=== PATIENT | female | born 1945 | race Caucasian/White ===

== ENCOUNTER → 2020-10-07 | Outpatient (CLI) | payer MEDICARE, OTHER ==
[~2020-10-07] MED LIST: AMIO200; ASCO500 PO; ASPI325; ASPI81CH; ASPI81CH PO; B Complex1 EAC2 PO; CALCAVITD; CALCAVITD PO; CALGLU500; CHOL10002; CHOL10002 PO; DAILY MULTIPLE1 EACH; DIGO.125 PO; DIGO.25 PO; ELIQUIS5 MG PO; ESOM20; EZET10; FISH OIL 1,2001 EACH PO; FISH1000 PO; HYDR1TAB94; HYDR1TAB94 PO; IRON240 MG PO; LEVSOD50 PO; LUTEIN10 MG PO; LUTEIN20 MG PO; METO50ER PO; MULVITA; MULVITMIND PO; ONDA4 PO; OXYACE5T PO; Pacerone100 MG PO; ROSU5; ROSU5 PO; RXOXYACE PO; Super B Comple150 MG; Toprol Xl25 MG PO; WARF5 PO
== END ==
LOC: LAB 13:33 → LAB SHORT 13:33
DX: D48.5 Neoplasm of uncertain behavior of skin (principal)
CPT/HCPCS: 88305

== ENCOUNTER → 2020-12-03 | Outpatient (CLI) | payer MEDICARE, OTHER | END | disposition home or self-care (01) | LOC: LAB SHORT 14:22 | DX: D18.01 Hemangioma of skin and subcutaneous tissue (principal) | CPT/HCPCS: 88305 ==

== ENCOUNTER 2021-04-09 13:10 | Day surgery (SDC) | payer MEDICARE, OTHER ==
[~2021-04-09] VITALS: Ht 165.1 cm; Wt 87.6 kg
[2021-04-09] MEDS ORDERED: CALCIUM 500 MG1 EAC2 PO (13:57)
[2021-04-09] MEDS ORDERED: VITAMIN D310 MC4 (13:58)
[2021-04-09] MEDS ORDERED: COQ10 (13:59)
[2021-04-09] MEDS ORDERED: GABA100 (14:00)
[2021-04-09] MEDS ORDERED: STOOL SOFTNER (14:01)
[2021-04-09] MEDS ORDERED: MAGNESIUM (14:01)
[2021-04-09] MEDS ORDERED: PYRIDOXINE (14:02)
[2021-04-09] MEDS ORDERED: PRAV20 PO (14:03)
[2021-04-09] MEDS ORDERED: FOCUS FACTOR (14:03)
--- NOTE | 2021-04-09 14:21 | NUR ---
Ambulatory in Day Surgery History, Chart, Medications and Allergies reviewed before start of procedure. Lungs clear T/O to Auscultation. Patient confirms NPO status and agrees with scheduled surgery. Pre-Op teaching done. Pt verbalizes understanding. Patient States Post-Procedure ride home has been arranged.
--- NOTE | 2021-04-09 14:51 | NUR ---
PT IV INFILTRATED DURING PROCEDURE BEFORE SCOPE WAS STARTED, NEW IV PLACED WITH ASSIST FROM OTHER IV. OTHER IV REMOVED WNL.
--- NOTE | 2021-04-09 14:57 | NUR ---
04/09/21 1457 Wilfredo Plasencia History, Chart, Medications and Allergies reviewed before start of procedure. Patient confirms NPO status and agrees with scheduled surgery. 3-LEAD EKG REVIEWED WITH PHYSICIAN PRIOR TO START OF PROCEDURE. MONITOR INTACT WITH CONTINUOUS PULSE OXIMETRY AND INTERMITTENT BP. PATIENT DETERMINED TO BE ASA APPROPRIATE FOR PROPOFOL SEDATION PRIOR TO START OF PROCEDURE BY DR. KRAFT.
--- NOTE | 2021-04-09 16:14 | NUR ---
Patient up to Ambulate independently. Gait steady. Discharge instructions reviewed with patient. Patient verbalizes understanding. Copy given to patient to take home WELL FAMILY. Patient States Post-Procedure ride home has been arranged. Discharged via wheelchair to private car for ride home. PT TOLERATING PO, WATER AND CRACKERS. PT REPORTS READY TO GO HOME THAT HER BP WAS THIS HIGH WHEN SHE CAME INTO HOSPITAL, THAT IT IS ALWAYS ELEVATED HERE AND HER TEST ENGINE EVALUATOR.
== END 2021-04-09 16:14 | disposition home or self-care (01) ==
LOC: ORSCMMR 13:10 → ORD 14:15 → ORSCMMR 14:15
PROVIDERS: Surgery
PROC: 0DBK8ZX Excision of Ascending Colon, Via Natural or Artificial Opening Endoscopic, Diagnostic (ICD-10-PCS; principal; 2021-04-09 14:15)
DX: Z12.11 Encounter for screening for malignant neoplasm of colon (principal); Z86.010 Personal history of colon polyps; D12.2 Benign neoplasm of ascending colon; Z80.0 Family history of malignant neoplasm of digestive organs; I48.91 Unspecified atrial fibrillation; E78.5 Hyperlipidemia, unspecified; E03.9 Hypothyroidism, unspecified; Z79.899 Other long term (current) drug therapy
CPT/HCPCS: 88305; J2704; J7120

== ENCOUNTER 2021-09-21 07:35 | Day surgery (SDC) | payer MEDICARE, OTHER ==
[~2021-09-21] VITALS: Ht 157.5 cm; Wt 89.0 kg
[~2021-09-21 07:35] MED LIST changes: +CALCIUM 500 MG1 EAC2 PO; +COQ10; +FOCUS FACTOR; +GABA100; +MAGNESIUM; +PRAV20 PO; +PYRIDOXINE; +STOOL SOFTNER; +VITAMIN D310 MC4
[2021-09-21] MEDS ORDERED: VITAMIN D32000 UNIT PO (08:23)
--- NOTE | 2021-09-21 10:08 | NUR ---
09/21/21 Andre8 Carol Pond 0.15MG EPINEPHRINE (1MG/1ML) ADDED TO 30ML BUPIVACAINE 0.5% TO CREATE LOCAL INJECTION OF 0.5% BUPIVACAINE WITH 1:200,000 EPI.
--- NOTE | 2021-09-21 11:16 | NUR ---
09/21/21 1116 MEAGAN ESCOBAR PAIN STARTING IN KNEE. MORE SO WHEN MOVING LEG. NORCO 5/325MG GIVEN.
== END 2021-09-21 11:50 | disposition home or self-care (01) ==
LOC: ORSCSDS 07:35
PROVIDERS: Orthopaedic Surgery
PROC: 0SBC4ZZ Excision of Right Knee Joint, Percutaneous Endoscopic Approach (ICD-10-PCS; principal; 2021-09-21 09:00)
DX: S83.241A Other tear of medial meniscus, current injury, right knee, initial encounter (principal); S83.281A Other tear of lateral meniscus, current injury, right knee, initial encounter; M17.0 Bilateral primary osteoarthritis of knee; I10 Essential (primary) hypertension; I48.91 Unspecified atrial fibrillation; E03.9 Hypothyroidism, unspecified; K21.9 Gastro-esophageal reflux disease without esophagitis; Z79.899 Other long term (current) drug therapy
CPT/HCPCS: A9270; J0171; J0690; J1100; J1885; J2405; J2704; J3010; J7120

== ENCOUNTER → 2022-01-29 | Outpatient (CLI) | payer MEDICARE, OTHER ==
[~2022-01-29] MED LIST changes: +VITAMIN D32000 UNIT PO
[2022-01-29 13:35] LABS: Stool Occult Blood Guaiac 1 Neg (Neg)
[2022-01-29 13:36] LABS: Stool Occult Blood Guaiac 2 Neg (Neg)
[2022-01-29 13:37] LABS: Stool Occult Blood Guaiac 3 Neg (Neg)
== END | disposition home or self-care (01) ==
LOC: LAB SHORT 12:23 → LAB 12:23 → LAB FUT 12-17 16:10
PROVIDERS: Internal Medicine
DX: D50.9 Iron deficiency anemia, unspecified (principal)
CPT/HCPCS: 82272

== ENCOUNTER → 2022-10-06 | Outpatient (CLI) | payer MEDICARE, OTHER | LOC: LAB SHORT 08:54 → PLD 08:54 | DX: D48.5 Neoplasm of uncertain behavior of skin (principal) | CPT/HCPCS: 88305 ==

== ENCOUNTER 2023-01-25 07:50 | Emergency (ER) | payer MEDICARE, OTHER ==
[~2023-01-25] VITALS: Ht 167.6 cm; Wt 84.4 kg
[2023-01-25 08:35] LABS: BASOPHILS ABSOLUTE AUTO 0.01 K/mm3 (0.00-0.23); BASOPHILS PERCENT AUTO 0 % (0-2); EOSINOPHILS ABSOLUTE AUTO 0.23 K/mm3 (0.00-0.68); EOSINOPHILS PERCENT AUTO 2 % (0-6); Hematocrit 40.9 % (33.0-51.0); Hemoglobin 13.9 g/dL (11.5-16.0); IMMATURE GRAN ABSOLUTE AUTO 0.04 K/mm3 (0.00-0.10); IMMATURE GRAN PERCENT AUTO 0 % (0-1); LYMPHOCYTES ABSOLUTE AUTO 0.98 K/mm3 (0.84-5.20); LYMPHOCYTES PERCENT AUTO 10 % (21-46); MONOCYTES ABSOLUTE AUTO 0.92 K/mm3 (0.16-1.47); MONOCYTES PERCENT AUTO 10 % (4-13); Mean Corpuscular HGB 29.2 pg (26.0-34.0); Mean Corpuscular Volume 86 fL (80-100); Mean Platelet Volume 10.8 fL (9.1-12.4); NEUTROPHILS PERCENT AUTO 78 % (41-73); Platelet Count 196 K/mm3 (150-400); RDW Coefficient Variation 13.3 % (11.7-14.2); RDW Standard Deviation 41.6 fL (35.1-46.3); Red Blood Cell Count 4.76 M/mm3 (3.80-5.20); White Blood Cell Count 9.68 K/mm3 (4.00-11.30)
[2023-01-25 08:54] LABS: Albumin, Blood 3.4 g/dL (3.4-5.0); Bilirubin, Total 0.4 mg/dL (0.1-1.0); Bun/Creatinine Ratio 22.3 (12.0-20.0); Creatinine, Blood 0.76 mg/dL (0.40-1.00); Globulin, Blood 3.3 g/dL (2.2-4.0); Potassium, Blood 4.1 mmol/L (3.5-5.5); Total Protein, Blood 6.7 g/dL (6.4-8.2)
[2023-01-25 09:33] LABS: Source, Urine Clean Catch
[2023-01-25 09:45] LABS: Appearance, Urine Clear (Clear); Bilirubin, Urine Neg (Neg); Blood, Urine Neg (Neg); Color, Urine Yellow (P-Yellow); Glucose Qualitative, Urine Neg (Neg); Ketones, Urine Neg (Neg); Leukocyte Esterase, Urine Neg (Neg); Nitrite, Urine Neg (Neg); Protein, Urine Neg (Neg); Specific Gravity, Urine 1.015 (1.003-1.022); Urobilinogen, Urine NORM (Normal)
[2023-01-25] MEDS ORDERED: Voltaren100 GM TOP (10:16)
[2023-01-25] MEDS ORDERED: LIDO700A20 TOP (10:16)
[2023-01-25] MEDS ORDERED: HYDR1TAB94 PO (10:16)
[2023-01-25 10:40] VITALS: BP 161/73
== END 2023-01-25 10:45 | disposition home or self-care (01) ==
LOC: ER 07:50
PROVIDERS: Emergency Medicine
DX: R07.89 Other chest pain (principal); I48.91 Unspecified atrial fibrillation; E78.5 Hyperlipidemia, unspecified; K21.9 Gastro-esophageal reflux disease without esophagitis; Z88.8 Allergy status to other drugs, medicaments and biological substances; Z79.899 Other long term (current) drug therapy
CPT/HCPCS: 71046; 80053; 81003; 83690; 85025; 96374; 99284-25; A9270; J1885

== ENCOUNTER 2023-06-16 00:49 | Emergency (ER) | payer MEDICARE, OTHER ==
[~2023-06-16] VITALS: Ht 167.6 cm; Wt 84.4 kg
[~2023-06-16 00:49] MED LIST changes: +LIDO700A20 TOP; +Voltaren100 GM TOP
[2023-06-16 02:12] LABS: BASOPHILS ABSOLUTE AUTO 0.02 K/mm3 (0.00-0.23); BASOPHILS PERCENT AUTO 0 % (0-2); EOSINOPHILS ABSOLUTE AUTO 0.21 K/mm3 (0.00-0.68); EOSINOPHILS PERCENT AUTO 2 % (0-6); Hematocrit 40.1 % (33.0-51.0); Hemoglobin 13.3 g/dL (11.5-16.0); IMMATURE GRAN ABSOLUTE AUTO 0.06 K/mm3 (0.00-0.10); IMMATURE GRAN PERCENT AUTO 1 % (0-1); LYMPHOCYTES ABSOLUTE AUTO 2.28 K/mm3 (0.84-5.20); LYMPHOCYTES PERCENT AUTO 24 % (21-46); MONOCYTES ABSOLUTE AUTO 0.78 K/mm3 (0.16-1.47); MONOCYTES PERCENT AUTO 8 % (4-13); Mean Corpuscular HGB 28.5 pg (26.0-34.0); Mean Corpuscular HGB Conc 33.2 g/dL (31.5-36.5); Mean Corpuscular Volume 86 fL (80-100); Mean Platelet Volume 10.9 fL (9.1-12.4); NEUTROPHILS ABSOLUTE AUTO 6.07 K/mm3 (1.96-9.15); NEUTROPHILS PERCENT AUTO 65 % (41-73); Platelet Count 262 K/mm3 (150-400); RDW Coefficient Variation 12.8 % (11.7-14.2); RDW Standard Deviation 39.5 fL (35.1-46.3); Red Blood Cell Count 4.67 M/mm3 (3.80-5.20); White Blood Cell Count 9.42 K/mm3 (4.00-11.30)
[2023-06-16 02:46] LABS: Albumin, Blood 3.5 g/dL (3.4-5.0); Bilirubin, Total 0.3 mg/dL (0.1-1.0); Bun/Creatinine Ratio 31.3 (12.0-20.0); Calcium, Blood 9.1 mg/dL (8.5-10.1); Creatinine, Blood 0.74 mg/dL (0.40-1.00); Globulin, Blood 3.5 g/dL (2.2-4.0); Potassium, Blood 3.8 mmol/L (3.5-5.5)
[2023-06-16] MEDS ORDERED: ASPIRIN REGIMEN81 MG PO (05:16)
[2023-06-16] MEDS ORDERED: LISI5 PO (06:12)
[2023-06-16 06:30] VITALS: BP 150/68
== END 2023-06-16 06:47 | disposition home or self-care (01) ==
LOC: ER 00:49
PROVIDERS: Emergency Medicine
DX: I10 Essential (primary) hypertension (principal); I48.91 Unspecified atrial fibrillation; E78.00 Pure hypercholesterolemia, unspecified; Z79.899 Other long term (current) drug therapy
CPT/HCPCS: 80053; 84484; 85025; 93005; 93010; 99284-25; A9270

== ENCOUNTER → 2023-09-25 | Outpatient (CLI) | payer MEDICARE, OTHER ==
[~2023-09-25] MED LIST changes: +ASPIRIN REGIMEN81 MG PO; +LISI5 PO
== END | disposition home or self-care (01) ==
LOC: LAB SHORT 08:28 → LAB 08:28 → LAB SHORT 09-26 08:28
PROVIDERS: Internal Medicine Endocrinology, Diabetes & Metabolism
DX: E26.9 Hyperaldosteronism, unspecified (principal)
CPT/HCPCS: 81050; 82570; 84300

== ENCOUNTER 2024-05-12 19:01 | Observation (INO) | payer MEDICARE, OTHER ==
[~2024-05-12] VITALS: Ht 165.1 cm; Wt 86.9 kg
[~2024-05-12 19:01] MED LIST changes: -COQ10; +COQ10 PO
[2024-05-12] MEDS ORDERED: MULVITA PO (19:17)
[2024-05-12] MEDS ORDERED: ELIQUIS5 M3 PO (19:18)
[2024-05-12] MEDS ORDERED: EZETIMIBE10 M6 PO (19:19)
[2024-05-12] MEDS ORDERED: LOSARTAN POTASS25 M2 PO (19:19)
[2024-05-12] MEDS ORDERED: PRAV20 PO (19:19)
[2024-05-12 19:30] LABS: BASOPHILS ABSOLUTE AUTO 0.01 K/mm3 (0.00-0.23); BASOPHILS PERCENT AUTO 0 % (0-2); EOSINOPHILS ABSOLUTE AUTO 0.16 K/mm3 (0.00-0.68); EOSINOPHILS PERCENT AUTO 2 % (0-6); Hematocrit 39.3 % (33.0-51.0); Hemoglobin 13.3 g/dL (11.5-16.0); IMMATURE GRAN ABSOLUTE AUTO 0.02 K/mm3 (0.00-0.10); IMMATURE GRAN PERCENT AUTO 0 % (0-1); LYMPHOCYTES ABSOLUTE AUTO 2.39 K/mm3 (0.84-5.20); LYMPHOCYTES PERCENT AUTO 29 % (21-46); MONOCYTES ABSOLUTE AUTO 0.71 K/mm3 (0.16-1.47); MONOCYTES PERCENT AUTO 9 % (4-13); Mean Corpuscular HGB 29.2 pg (26.0-34.0); Mean Corpuscular HGB Conc 33.8 g/dL (31.5-36.5); Mean Corpuscular Volume 86 fL (80-100); Mean Platelet Volume 10.4 fL (9.1-12.4); NEUTROPHILS PERCENT AUTO 60 % (41-73); Platelet Count 236 K/mm3 (150-400); RDW Coefficient Variation 13.1 % (11.7-14.2); RDW Standard Deviation 40.8 fL (35.1-46.3); Red Blood Cell Count 4.55 M/mm3 (3.80-5.20); White Blood Cell Count 8.29 K/mm3 (4.00-11.30)
[2024-05-12 19:47] LABS: Albumin, Blood 3.5 g/dL (3.4-5.0); Albumin/Globulin Ratio 1.1 (0.8-1.8); Bilirubin, Total 0.2 mg/dL (0.1-1.0); Calcium, Blood 9.7 mg/dL (8.5-10.1); Creatinine, Blood 0.78 mg/dL (0.40-1.00); Globulin, Blood 3.2 g/dL (2.2-4.0); Potassium, Blood 3.9 mmol/L (3.5-5.5); Total Protein, Blood 6.7 g/dL (6.4-8.2)
[2024-05-12] MEDS ORDERED: HydrALAZINE HCl 20 MG / ML 1ML Vial IV ONE (21:15)
[2024-05-12] MEDS ORDERED: Lidocaine/Tetracaine/Epinephr 3 ML GEL SYRINGE TOP ONE (21:25)
[2024-05-12] MEDS ORDERED: HydrALAZINE HCl 20 MG / ML 1ML Vial IV PRN (22:15)
[2024-05-13] VITALS (13 sets, daily range): BP systolic 131–200; BP diastolic 55–85
[2024-05-13] MEDS ORDERED: Ondansetron HCl 2 MG / ML 2ML Vial IV PRN (00:40)
[2024-05-13] MEDS ORDERED: FLU VACC TS2024-25(6MOS UP)/PF 45 MCG/0.5 ML SYRINGE IM ONE (00:40)
[2024-05-13] MEDS ORDERED: Losartan Potassium 50 MG Tab PO SCH (01:00)
--- NOTE | 2024-05-13 01:17 | NUR ---
PATIENT IS A NEW ADMIT FROM THE ED. AXOX 4 AND INDEPENDENT IN ROOM. DENIES CHEST PAIN, SOB, AND N/V. ON ROOM AIR. ORIENTED TO ROOM AND CALL LIGHT SYSTEM. PO COZAAR 50MG GIVEN X ONE. SBP 143/61 ON ADMIT. PATIENT RESTING AFTER ASSESSMENT. WCTM.
--- NOTE | 2024-05-13 04:44 | NUR ---
SHIFT SUMMARY PATIENT HAD NO ACUTE CHANGES. AXOX 4 AND INDEPENDENT IN ROOM. PIV INTACT. TELE MONITOR NSR 60'S. DENIES CHEST PAIN, SOB, AND N/V. VSS/AFEBRILE. WAITING ON UA SAMPLE. ORDER PLACED AFTER PATIENT HAD ALREADY VOIDED. TROPONINS DECREASED FROM 147 TO 138. REPORTS LIVES WITH HER IN [place]. CALL LIGHT IN REACH. BED IN LOWEST POSITION. WILL CONTINUE TO MONITOR UNTIL DAY SHIFT NURSE ASSUMES CARE.
--- NOTE | 2024-05-13 04:51 | NUR ---
MACHINE SOLE LEVELER REPORTS FIVE BEAT RUN OF V-TACH AND BACK TO NSR 60'S. PATIENT WAS UP TO BEDSIDE COMMODE. [facility].
[2024-05-13 05:50] LABS: BASOPHILS ABSOLUTE AUTO 0.01 K/mm3 (0.00-0.23); BASOPHILS PERCENT AUTO 0 % (0-2); EOSINOPHILS ABSOLUTE AUTO 0.19 K/mm3 (0.00-0.68); EOSINOPHILS PERCENT AUTO 3 % (0-6); Hematocrit 38.4 % (33.0-51.0); Hemoglobin 13.2 g/dL (11.5-16.0); IMMATURE GRAN ABSOLUTE AUTO 0.01 K/mm3 (0.00-0.10); IMMATURE GRAN PERCENT AUTO 0 % (0-1); LYMPHOCYTES ABSOLUTE AUTO 1.57 K/mm3 (0.84-5.20); LYMPHOCYTES PERCENT AUTO 21 % (21-46); MONOCYTES PERCENT AUTO 10 % (4-13); Mean Corpuscular HGB 29.1 pg (26.0-34.0); Mean Corpuscular HGB Conc 34.4 g/dL (31.5-36.5); Mean Corpuscular Volume 85 fL (80-100); Mean Platelet Volume 10.8 fL (9.1-12.4); NEUTROPHILS ABSOLUTE AUTO 4.84 K/mm3 (1.96-9.15); NEUTROPHILS PERCENT AUTO 66 % (41-73); Platelet Count 228 K/mm3 (150-400); RDW Coefficient Variation 13.2 % (11.7-14.2); RDW Standard Deviation 40.6 fL (35.1-46.3); Red Blood Cell Count 4.53 M/mm3 (3.80-5.20); White Blood Cell Count 7.32 K/mm3 (4.00-11.30)
[2024-05-13 06:24] LABS: Albumin, Blood 3.1 g/dL (3.4-5.0); Bilirubin, Total 0.6 mg/dL (0.1-1.0); Bun/Creatinine Ratio 25.4 (12.0-20.0); Calcium, Blood 9.4 mg/dL (8.5-10.1); Creatinine, Blood 0.63 mg/dL (0.40-1.00); Globulin, Blood 3.2 g/dL (2.2-4.0); Potassium, Blood 3.9 mmol/L (3.5-5.5); Total Protein, Blood 6.3 g/dL (6.4-8.2)
[2024-05-13 06:30] LABS: Source, Urine Clean Catch
--- NOTE | 2024-05-13 06:30 | NUR ---
URINE SAMPLE COLLECED AND SENT TO LAB.
[2024-05-13 06:43] LABS: Appearance, Urine Clear (Clear); Bilirubin, Urine Neg (Neg); Blood, Urine Neg (Neg); Color, Urine Yellow (P-Yellow); Glucose Qualitative, Urine Neg (Neg); Ketones, Urine Neg (Neg); Leukocyte Esterase, Urine Neg (Neg); Nitrite, Urine Neg (Neg); Protein, Urine Neg (Neg); Specific Gravity, Urine 1.015 (1.003-1.022); Urobilinogen, Urine NORM (Normal)
[2024-05-13] MEDS ORDERED: Apixaban 5 MG Tab PO SCH (09:00)
[2024-05-13] MEDS ORDERED: Gabapentin 100 MG Cap PO SCH (09:00)
[2024-05-13] MEDS ORDERED: Ezetimibe 10 MG Tab PO SCH (09:00)
[2024-05-13] MEDS ORDERED: Enoxaparin 40 MG/0.4 ML SYR SC SCH (09:00)
[2024-05-13] MEDS ORDERED: Empagliflozin 10 MG TAB PO SCH (09:00)
[2024-05-13] MEDS ORDERED: Metoprolol Succinate 25 MG TABCR PO SCH (09:00)
[2024-05-13] MEDS ORDERED: Losartan Potassium 50 MG Tab PO ONE (12:45)
--- NOTE | 2024-05-13 18:46 | NUR ---
PATIENT IS ALERT AND ORIENTED AND COOPERATIVE WITH CARE. ON RA. INDEPENDENT IN THE ROOM. FAMILY AT THE BEDSIDE TODAY. ECHO COMPLETE, PENDING RESULTS. PATIENT WAS HYPERTENSIVE THIS MORNING, GIVEN MORNING MEDS EARLY. THEN HYPERTENSIVE AGAIN AROUND NOON, GIVEN AN ADDITIONAL DOSE OF [place]. ONCE AGAIN HYPERTENSIVE THIS EVENING, IV HYDRALAZINE GIVEN. HER LAST BP WAS 135/55. WILL CONTINUE TO MONITOR
[2024-05-13] MEDS ORDERED: Pravastatin Sodium 20 MG Tab PO SCH (21:00)
--- NOTE | 2024-05-14 04:17 | NUR ---
SHIFT SUMMARY PATIENT HAD NO ACUTE CHANGES. AXOX 4 AND INDEPENDENT IN ROOM. DENIES CHEST PAIN, SOB, AND N/V. VSS/AFEBRILE. BP 130/65 AT START OF SHIFT. TELE MONITOR SB 67. AWAKE FIRST PART OF SHIFT. CALL LIGHT IN REACH. BED IN LOWEST POSITION. WILL CONTINUE TO MONITOR UNTIL DAY SHIFT NURSE ASSUMES CARE.
[2024-05-14 05:11] VITALS: BP 138/67
[2024-05-14 07:14] VITALS: BP 155/79
[2024-05-14] MEDS ORDERED: MAGNESIUM250 MG PO (13:02)
[2024-05-14] MEDS ORDERED: LOSA50 PO (13:02)
[2024-05-14] MEDS ORDERED: Vitamin B-650 MG PO (13:03)
[2024-05-14] MEDS ORDERED: JARDIANCE10 MG PO (13:04)
--- NOTE | 2024-05-14 14:46 | NUR ---
REPORT RECEIVED. PT WAITING TO BE DISCHARGED. NO C/O PAIN NO DISTRESS, AT BEDSIDE, QUESTIONS ANSWERED TO THE BEST OF MY ABILITY. PT UP AND AMBULATING IN [place] WITH
--- NOTE | 2024-05-14 14:47 | NUR ---
1200 DR DUARTE IN WITH PT AND ORDERS FOR DISCHARGE RECEIVED. 1230 PT DISCHARGED PT UNDERSTANDS DISCHARGE, IV DCED PT DCED
== END 2024-05-14 13:21 | disposition home or self-care (01) ==
LOC: ER 19:01 → MEDS 19:02
PROVIDERS: Physician Assistant; ADMIT Internal Medicine
DX: I16.0 Hypertensive urgency (principal); I48.91 Unspecified atrial fibrillation; E78.5 Hyperlipidemia, unspecified; I10 Essential (primary) hypertension; K21.9 Gastro-esophageal reflux disease without esophagitis; G62.9 Polyneuropathy, unspecified; D50.9 Iron deficiency anemia, unspecified; Z79.01 Long term (current) use of anticoagulants; Z79.899 Other long term (current) drug therapy; Z88.8 Allergy status to other drugs, medicaments and biological substances
CPT/HCPCS: 36415; 80053; 81003; 84484; 85025; 93005; 93010; 93306; 96374; 96376; 99284-25; A9270; G0378; J0360

== ENCOUNTER 2024-09-14 02:08 | Emergency (ER) | payer MEDICARE, OTHER ==
[~2024-09-14] VITALS: Ht 165.1 cm; Wt 83.5 kg
[~2024-09-14 02:08] MED LIST changes: +ELIQUIS5 M3 PO; +EZETIMIBE10 M6 PO; +JARDIANCE10 MG PO; +LOSA50 PO; +LOSARTAN POTASS25 M2 PO; +MAGNESIUM250 MG PO; +MULVITA PO; +Vitamin B-650 MG PO
[2024-09-14 03:09] LABS: BASOPHILS ABSOLUTE AUTO 0.02 K/mm3 (0.00-0.23); BASOPHILS PERCENT AUTO 0 % (0-2); EOSINOPHILS ABSOLUTE AUTO 0.19 K/mm3 (0.00-0.68); EOSINOPHILS PERCENT AUTO 2 % (0-6); Hematocrit 37.9 % (33.0-51.0); Hemoglobin 12.7 g/dL (11.5-16.0); IMMATURE GRAN ABSOLUTE AUTO 0.03 K/mm3 (0.00-0.10); IMMATURE GRAN PERCENT AUTO 0 % (0-1); LYMPHOCYTES ABSOLUTE AUTO 1.61 K/mm3 (0.84-5.20); LYMPHOCYTES PERCENT AUTO 18 % (21-46); MONOCYTES ABSOLUTE AUTO 0.61 K/mm3 (0.16-1.47); MONOCYTES PERCENT AUTO 7 % (4-13); Mean Corpuscular HGB 29.6 pg (26.0-34.0); Mean Corpuscular HGB Conc 33.5 g/dL (31.5-36.5); Mean Corpuscular Volume 88 fL (80-100); Mean Platelet Volume 10.8 fL (9.1-12.4); NEUTROPHILS ABSOLUTE AUTO 6.52 K/mm3 (1.96-9.15); NEUTROPHILS PERCENT AUTO 73 % (41-73); Platelet Count 238 K/mm3 (150-400); RDW Coefficient Variation 13.1 % (11.7-14.2); RDW Standard Deviation 42.6 fL (35.1-46.3); Red Blood Cell Count 4.29 M/mm3 (3.80-5.20); White Blood Cell Count 8.98 K/mm3 (4.00-11.30)
[2024-09-14 03:40] LABS: Albumin, Blood 3.6 g/dL (3.4-5.0); Albumin/Globulin Ratio 1.1 (0.8-1.8); Bilirubin, Total 0.4 mg/dL (0.1-1.0); Bun/Creatinine Ratio 36.9 (12.0-20.0); Calcium, Blood 9.1 mg/dL (8.5-10.1); Creatinine, Blood 0.7 mg/dL (0.40-1.00); Globulin, Blood 3.2 g/dL (2.2-4.0); Potassium, Blood 3.8 mmol/L (3.5-5.5); Total Protein, Blood 6.8 g/dL (6.4-8.2)
[2024-09-14] MEDS ORDERED: HydrALAZINE HCl 20 MG / ML 1ML Vial IV ONE (04:45)
[2024-09-14 06:00] VITALS: BP 166/62
== END 2024-09-14 06:19 | disposition home or self-care (01) ==
LOC: ER 02:08
PROVIDERS: Student in an Organized Health Care Education/Training Program
DX: I10 Essential (primary) hypertension (principal); R51.9 Headache, unspecified; K21.9 Gastro-esophageal reflux disease without esophagitis; I48.91 Unspecified atrial fibrillation; Z79.899 Other long term (current) drug therapy; Z88.8 Allergy status to other drugs, medicaments and biological substances
CPT/HCPCS: 71046; 80053; 84484; 85025; 93005; 93010; 96374; 99284-25; J0360

== ENCOUNTER 2024-10-02 07:33 | Day surgery (SDC) | payer MEDICARE, OTHER ==
[~2024-10-02] VITALS: Ht 165.1 cm; Wt 84.5 kg
[2024-10-02 09:50] VITALS: BP 130/91
== END 2024-10-02 09:20 | disposition home or self-care (01) ==
LOC: ORSCSDS 07:33
PROC: 08RK3JZ Replacement of Left Lens with Synthetic Substitute, Percutaneous Approach (ICD-10-PCS; principal; 2024-10-02)
DX: H25.813 Combined forms of age-related cataract, bilateral (principal); H40.013 Open angle with borderline findings, low risk, bilateral; E78.5 Hyperlipidemia, unspecified; H11.002 Unspecified pterygium of left eye; Z79.01 Long term (current) use of anticoagulants; Z79.899 Other long term (current) drug therapy